=== PATIENT | male | born 1960 | race Caucasian/White ===

== ENCOUNTER 2019-01-04 09:40 | Emergency (ER) | payer OTHER ==
[2019-01-04 09:45] VITALS: BP 127/78; PULSE 112; TEMP 97.9; BMI 23.6
--- NOTE | 2019-01-04 11:18 | PDOC ---
History of Present Illness - General Chief Complaint: Injury Stated Complaint: FALL // POSSIBLY BROKEN HAND Time Seen by Provider: 01/04/19 11:06 - History of Present Illness Initial Comments: 01/04/19 11:10 58-year-old male with a past medical history significant for diabetes hypertension and dyslipidemia presents for evaluation of right hand pain. States he had a fall last night after a fall at home. He states he was walking in the dark and lost his balance. Causing him to fall backwards on his right hand injuring his hand and right foot. No loss of consciousness no head injury no postinjury nausea vomiting or visual changes points to the ulnar aspect of the right hand and the right great toe as the area of his discomfort. Past History - Past Medical History Allergies/Adverse Reactions: Allergies Allergy/AdvReac Type Severity Reaction Status Date / Time No Known Allergies Allergy Verified 01/04/19 09:44 COPD: No Diabetes: Yes HTN: Yes Other medical history: neuropathy - Suicide/Smoking/Psychosocial Hx Smoking History: Current every day smoker Number of Cigarettes Smoked Daily: 10 Information on smoking cessation initiated: No Review of Systems - Review of Systems HEENTM: No: Blurred Vision, Double Vision ABD/GI: No: Nausea, Vomiting Musculoskeletal: Yes: Joint Pain Neurological: Yes: Headache *Physical Exam - Vital Signs Last Vital Signs Temp Pulse Resp BP Pulse Ox 97.9 F 112 H 20 127/78 97 01/04/19 09:41 01/04/19 09:41 01/04/19 09:41 01/04/19 09:41 01/04/19 09:41 - Physical Exam Comments: 01/04/19 11:18 Right hand skin color and temperature are normal. To swelling about the ulnar aspect at the dorsum of the hand. There is a superficial abrasion on the skin overlying the base of the fifth metacarpal. FDS and FDP work independently there are no gross sensorimotor deficits. 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 There is tenderness at the third digit of the A1 sridevi and triggering of the finger. This is long-standing. Right great toe is ecchymotic decreased range of motion and diffuse tenderness about the toe. No subungual hematoma or gross sensorimotor deficits. Moderate Sedation - Procedure Monitoring Vital Signs: Procedure Monitoring Vital Signs Temperature 97.9 F 01/04/19 09:41 Pulse Rate 112 H 01/04/19 09:41 Respiratory Rate 20 03/24/19 09:41 Blood Pressure 127/78 01/04/19 09:41 O2 Sat by Pulse Oximetry (%) 97 01/04/19 09:41 ED Treatment Course - RADIOLOGY Radiology Studies Ordered: Category Date Time Status HAND- RIGHT [RAD] Stat Radiology 01/04/19 11:08 Ordered Medical Decision Making - Medical Decision Making 01/04/19 12:03 There is an obliquely oriented minimally displaced fracture at the distal aspect of the fifth metacarpal of the right hand. Patient was splinted in an ulnar gutter splint with the wrist extended and MCP Js flexed slightly. Neurovascularly intact post-with application. I do not appreciate an acute fracture of the right great toe. He may weight- bear as tolerated. He is unable to use crutches because of fracture of the hand. *DC/Admit/Observation/Transfer Diagnosis at time of Disposition: Smoking addiction, Fractured hand, Contusion of great toe of right foot - Discharge Dispostion Disposition: HOME Condition at time of disposition: Stable Decision to Admit order: No - Referrals Referrals: Nathan Joe MD [Primary Care Provider] - Ramez Hernandez DO [Staff Physician] - - Patient Instructions Printed Discharge Instructions: How to Quit Smoking, Nicotine Replacement Therapy for Smoking Cessation During , Nicotine Addiction, Cigarette Addiction (Alternative Therapy), Tips to Help You Stop Smoking, Serious Ways to Stop Smoking, Assess Your Smoking Habit, Smoking May Drag Out Fracture Healing, Positive Mental Health Changes Found After Smoking Cessation, Smoking Cessation , DI for a Hand Fracture, Hand Fracture, DI for Contusion, Contusion Additional Instructions: Please stop smoking. This will interfere with her fracture healing. Continue taking medications as scheduled. Return to the emergency room for worsening symptoms and follow-up with orthopedic surgery for further evaluation and treatment of your hand fracture and you're toe contusion. He may take Tylenol as directed for pain. Follow-up with orthopedic surgery within the next 1-2 days for further evaluation and treatment options. - Post Discharge Activity
== END 2019-01-04 12:21 | disposition home or self-care (01) ==
LOC: JERFT 09:40
PROC: 2W3CX1Z Immobilization of Right Lower Arm using Splint (ICD-10-PCS; principal; 2019-01-04)
DX: S62.396A Other fracture of fifth metacarpal bone, right hand, initial encounter for closed fracture (principal); S90.111A Contusion of right great toe without damage to nail, initial encounter; W18.39XA Other fall on same level, initial encounter; Y93.89 Activity, other specified; Y92.038 Other place in apartment as the place of occurrence of the external cause; Y99.8 Other external cause status; I10 Essential (primary) hypertension; E11.9 Type 2 diabetes mellitus without complications; Z79.84 Long term (current) use of oral hypoglycemic drugs; E78.5 Hyperlipidemia, unspecified
CPT/HCPCS: 29125; 73130-TC-RT-FY; 73660-TC-FY; 99281-25

== ENCOUNTER 2021-07-29 02:01 | Emergency (ER) | payer OTHER ==
[2021-07-29 02:24] VITALS: BP 127/77; PULSE 98; TEMP 97.7; BMI 24.3
[2021-07-29] MEDS ORDERED: DIPHTH,PERTUSS(ACELL),TET 0.5 ML DISP.SYRIN IM ONE ×2 (03:11→03:29)
[2021-07-29] MEDS ORDERED: BACITRACIN 0.9 GM PACKET ONE (03:47)
== END 2021-07-29 04:27 | disposition home or self-care (01) ==
LOC: JER 02:01
PROC: 0HQ0XZZ Repair Scalp Skin, External Approach (ICD-10-PCS; principal; 2021-07-29)
PROC: 3E0234Z Introduction of Serum, Toxoid and Vaccine into Muscle, Percutaneous Approach (ICD-10-PCS; 2021-07-29)
DX: S09.90XA Unspecified injury of head, initial encounter (principal); S01.01XA Laceration without foreign body of scalp, initial encounter; W50.0XXA Accidental hit or strike by another person, initial encounter
CPT/HCPCS: 12001-25; 70450-TC; 72125-TC; 90471; 90715; 99284-25

== ENCOUNTER 2024-08-19 12:55 | Emergency (ER) | payer SELFPAY ==
[2024-08-19 13:03] VITALS: RESP 16; TEMP 97.6; BMI 24.3
[2024-08-19] MEDS ORDERED: LIDOCAINE VISCOUS 2% ORAL/TOP 15 ML UNIT-DOSE CUP ONE (14:58)
[2024-08-19] MEDS ORDERED: ACETAMINOPHEN 325 MG TABLET (FP) ONE (15:58)
[2024-08-19] MEDS ORDERED: POLYETHYLENE GLYCOL (HEALTHYLAX) 3350 17 GM PACKET ONE (15:58)
[2024-08-19] MEDS: ACETAMINOPHEN 500 MG TABLET (FP) PO ONE (16:02)
[2024-08-19] MEDS: POLYETHYLENE GLYCOL (HEALTHYLAX) 3350 17 GM PACKET PO SCH (16:04)
[2024-08-19 16:25] LABS: EPI CELLS 11 /uL (0-25.1); HYALINE CASTS 0 /uL (0-3.1); PH,URINE 5.5 (5.0-8.0); URINE APPEARANCE CLOUDY; URINE BACTERIA 5623 /uL (0-1359); URINE BILIRUBIN NEGATIVE (NEGATIVE); URINE COLOR YELLOW; URINE GLUCOSE (UA) 3+ (NEGATIVE); URINE KETONE NEGATIVE (NEGATIVE); URINE LEUK ESTERASE NEGATIVE (NEGATIVE); URINE NITRITE NEGATIVE (NEGATIVE); URINE PROTEIN NEGATIVE (NEGATIVE); URINE RBC 1445 /uL (0-23.9); URINE UROBILINOGEN 0.2 mg/dL (0.2-1.0); URINE WBC 10 /uL (0-25.8)
[2024-08-19] MEDS ORDERED: LIDOCAINE HCL 2% JELLY 11 ML TP ONE (18:09)
[2024-08-19] MEDS: LIDOCAINE HCL 2% JELLY 10 ML CARTRIDGE UR ONE ×2 (18:24→21:00)
[2024-08-19] MEDS ORDERED: LIDOCAINE HCL 2% JELLY 6 ML TP ONE ×2 (19:22→19:23)
[2024-08-19 20:14] VITALS: BP 145/88; PULSE 72
[2024-08-19] MEDS ORDERED: TAMSULOSIN HCL 0.4 MG CAP ONE (21:34)
[2024-08-19] MEDS ORDERED: SULFAMETHOXAZOLE/TRIMETHOPRIM 800MG/160MG D.S. TABLET ONE (21:34)
[2024-08-19] MEDS ORDERED: SULFAMETHOXAZOLE/TRIMETHOPRIM 800MG/160MG D.S. TABLET PO ONE (21:35)
[2024-08-19] MEDS ORDERED: TAMSULOSIN HCL 0.4 MG CAP PO ONE (21:35)
== END 2024-08-19 21:59 | disposition home or self-care (01) ==
LOC: JER 12:55
PROC: 0T2BX0Z Change Drainage Device in Bladder, External Approach (ICD-10-PCS; principal; 2024-08-19)
DX: N41.9 Inflammatory disease of prostate, unspecified (principal); R33.9 Retention of urine, unspecified; K59.00 Constipation, unspecified; R14.0 Abdominal distension (gaseous)
CPT/HCPCS: 74018-TC-FY; 81003; 87086; 99284-25

== ENCOUNTER 2025-05-11 11:22 | Observation (INO) | payer OTHER ==
[2025-05-11] MEDS ORDERED: LIDOCAINE HCL 2% JELLY 11 ML TP ONE (11:30)
[2025-05-11 12:06] LABS: ABSOLUTE IMMATURE GRANULOCYTES 0.07 x10^3/uL (0.0-0.031); BASOPHILS # 0.04 x10^3/uL (0.01-0.08); EOSINOPHIL % 0.1 % (0.8-7.0); EOSINOPHILS # 0.01 x10^3/uL (0.04-0.54); MCHC 34.8 g/dl (32.3-36.5); MEAN CELL VOLUME 87.6 fl (79.0-92.2); MEAN PLT VOLUME 9.7 fl (9.4-12.4); MONOCYTE # 0.97 x10^3/uL (0.30-0.82); MONOCYTE % 8.7 % (5.3-12.2); RDW 13.0 % (12.2-16.4)
[2025-05-11] MEDS: LIDOCAINE HCL 2% JELLY 11 ML TP ONE (12:09)
[2025-05-11] MEDS: LACTATED RINGERS SOLUTION 1000 ML INFUS.BAG IV ONE (12:09)
[2025-05-11 12:11] LABS: EPI CELLS 3 /uL (0-25.1); HYALINE CASTS 0 /uL (0-3.1); URINE APPEARANCE CLEAR; URINE BACTERIA 5 /uL (0-1359); URINE BILIRUBIN NEGATIVE (NEGATIVE); URINE COLOR YELLOW; URINE GLUCOSE (UA) 3+ (NEGATIVE); URINE KETONE TRACE (NEGATIVE); URINE LEUK ESTERASE NEGATIVE (NEGATIVE); URINE NITRITE NEGATIVE (NEGATIVE); URINE PROTEIN NEGATIVE (NEGATIVE); URINE RBC 944 /uL (0-23.9); URINE UROBILINOGEN 0.2 mg/dL (0.2-1.0); URINE WBC 6 /uL (0-25.8)
[2025-05-11 12:13] LABS: BG HCT 48.0 % (35.4-49); VENOUS BASE EXCESS -7.4 mmol/L (-2-2); VENOUS O2 SATURATION 88.3 % (70-80); VENOUS PCO2 27.0 mmHg (38-52); VENOUS PH 7.383 (7.310-7.410)
[2025-05-11 12:45] LABS: CO2 18.0 mmol/L (21-32)
[2025-05-11 12:46] LABS: GLUCOSE,RANDOM 343.0 mg/dL (74-106)
[2025-05-11 12:49] LABS: CREATININE 1.6 mg/dL (0.55-1.3); SGOT/AST 35.0 U/L (15-37); SGPT/ALT 81.0 U/L (13-61); TOT PROT 7.8 g/dl (6.4-8.2)
[2025-05-11 12:51] LABS: ALK PHOS 93.0 U/L (45-117)
[2025-05-11] MEDS ORDERED: HEPARIN NA (PORCINE) 5,000 UNITS/ML 1ML VIAL ONE (13:59)
[2025-05-11] MEDS: HEPARIN NA (PORCINE) 5,000 UNITS/ML 1ML VIAL SQ SCH (14:05)
[2025-05-11 15:31] VITALS: BMI 24.5
[2025-05-11 16:37] LABS: CO2 26.0 mmol/L (21-32)
[2025-05-11 16:38] LABS: GLUCOSE,RANDOM 351.0 mg/dL (74-106)
[2025-05-11 16:41] LABS: CREATININE 1.5 mg/dL (0.55-1.3)
[2025-05-11] MEDS: INSULIN ASPART SLIDING SCALE (NOVOLOG) 1 VIAL SQ SCH (17:19)
[2025-05-11] MEDS: TAMSULOSIN HCL 0.4 MG CAP PO SCH (17:27)
[2025-05-11] MEDS: SODIUM CHLORIDE 0.45% 1,000 ML IV SCH (17:27)
[2025-05-11 17:30] LABS: HCV DIAGNOSTIC IN-HOUSE W/RFLX NON-REACTIVE (NONREACTIVE)
[2025-05-11] MEDS: GABAPENTIN 400 MG CAPSULE PO SCH (18:11)
[2025-05-11] MEDS: ACETAMINOPHEN 325 MG TABLET (FP) PO PRN (19:56)
[2025-05-11 21:14] LABS: HIV INTERPRETATION NEGATIVE (NEGATIVE)
[2025-05-11] MEDS ORDERED: GABAPENTIN 400 MG CAPSULE PO SCH (22:00)
[2025-05-11] MEDS: INSULIN GLARGINE (LANTUS) 100 UNITS/ML UNITS SQ SCH (22:29)
[2025-05-12 07:32] LABS: ABSOLUTE IMMATURE GRANULOCYTES 0.03 x10^3/uL (0.0-0.031); BASOPHILS # 0.02 x10^3/uL (0.01-0.08); EOSINOPHIL % 1.7 % (0.8-7.0); EOSINOPHILS # 0.11 x10^3/uL (0.04-0.54); MCHC 34.1 g/dl (32.3-36.5); MEAN CELL VOLUME 89.3 fl (79.0-92.2); MEAN PLT VOLUME 9.8 fl (9.4-12.4); MONOCYTE # 0.58 x10^3/uL (0.30-0.82); MONOCYTE % 9.0 % (5.3-12.2); RDW 12.9 % (12.2-16.4)
[2025-05-12 08:39] LABS: CO2 24.0 mmol/L (21-32); CREATININE 1.3 mg/dL (0.55-1.3); GLUCOSE,RANDOM 365.0 mg/dL (74-106); SGOT/AST 39.0 U/L (15-37); SGPT/ALT 66.0 U/L (13-61)
[2025-05-12 08:43] LABS: TOT PROT 6.2 g/dl (6.4-8.2)
[2025-05-12 08:44] LABS: ALK PHOS 76.0 U/L (45-117)
[2025-05-12] MEDS: FINASTERIDE 5 MG TABLET (FP) PO SCH (10:37)
[2025-05-12] MEDS: glipiZIDE 5 MG TABLET (FP) PO ONE (14:52)
[2025-05-13] MEDS: glipiZIDE-XL 5 MG TAB.ER.24 PO SCH (06:32)
[2025-05-13 07:39] LABS: MCHC 33.6 g/dl (32.3-36.5); MEAN CELL VOLUME 90.2 fl (79.0-92.2); MEAN PLT VOLUME 10.2 fl (9.4-12.4); RDW 12.8 % (12.2-16.4)
[2025-05-13 08:25] LABS: CO2 26.0 mmol/L (21-32); GLUCOSE,RANDOM 276.0 mg/dL (74-106); TOT PROT 6.2 g/dl (6.4-8.2)
[2025-05-13 08:27] LABS: ALK PHOS 77.0 U/L (45-117); CREATININE 1.1 mg/dL (0.55-1.3); SGOT/AST 37.0 U/L (15-37); SGPT/ALT 68.0 U/L (13-61)
[2025-05-13] MEDS: NYSTATIN POWDER 100,000 UNITS/GM - 15 GM TOPICAL POWDER TP SCH (09:37)
[2025-05-13 15:41] VITALS: RESP 18
[2025-05-13 18:29] VITALS: BP 136/79; PULSE 71; TEMP 97.3
== END 2025-05-13 18:59 | disposition home or self-care (01) ==
LOC: JER 11:22 → JERBED 13:24 → J6W TELE 14:43
PROVIDERS: ADMIT Student in an Organized Health Care Education/Training Program; ATTEND Internal Medicine
DX: N40.1 Benign prostatic hyperplasia with lower urinary tract symptoms (principal); R33.8 Other retention of urine; E11.65 Type 2 diabetes mellitus with hyperglycemia; T38.3X6A Underdosing of insulin and oral hypoglycemic [antidiabetic] drugs, initial encounter; E11.10 Type 2 diabetes mellitus with ketoacidosis without coma; N17.9 Acute kidney failure, unspecified; I10 Essential (primary) hypertension; E11.40 Type 2 diabetes mellitus with diabetic neuropathy, unspecified; E78.5 Hyperlipidemia, unspecified; F17.210 Nicotine dependence, cigarettes, uncomplicated; R79.89 Other specified abnormal findings of blood chemistry; E80.6 Other disorders of bilirubin metabolism; Z91.141 Patient's other noncompliance with medication regimen due to financial hardship; Y63.6 Underdosing and nonadministration of necessary drug, medicament or biological substance
CPT/HCPCS: 36415; 76775-TC; 80048; 80053; 81003; 82010; 82248; 82803; 82962; 83036; 83735; 84100; 85025; 85027; 86803; 87086; 87389; 96372; 99285-25; G0378